=== PATIENT | female | born 1980 | race Caucasian/White ===

== ENCOUNTER 2020-08-27 14:59 | Emergency (ER) | payer MEDICAID, SELFPAY ==
[~2020-08-27] VITALS: Ht 160 cm; Wt 68.0 kg
[2020-08-27 15:01] VITALS: Ht 160 cm; Wt 68.0 kg
[2020-08-27 16:23] VITALS: BP 110/71
== END 2020-08-27 16:23 | disposition home or self-care (01) ==
LOC: ED 14:59
DX: J12.89 Other viral pneumonia (principal); Z98.890 Other specified postprocedural states